=== PATIENT | female | born 1990 | race Caucasian/White ===

== ENCOUNTER → 2023-04-30 | Outpatient (CLI) | payer BC ==
--- NOTE | 2023-05-02 06:20 | MR ---
EXAMINATION TYPE: MR knee LT wo con DATE OF EXAM: 04/30/2023 COMPARISON: NONE HISTORY: Left knee pain and swelling with locking for approximately 4 months. History of ACL reconstr uction in 2009. Internal derangement. TECHNIQUE: Multiplanar, multisequence images of the knee is performed without IV contrast. FINDINGS: Suboptimal study with motion artifact degradation MEDIAL MENISCUS: Anterior and posterior horns are intact without tear. LATERAL MENISCUS: Anterior and posterior horns are intact without tear. CRUCIATE LIGAMENTS: The posterior cruciate ligament is intact and unremarkable. Surgically repaired a nterior cruciate ligament is felt intact. COLLATERAL LIGAMENTS: The medial collateral ligament and lateral collateral ligament complex are inta ct and unremarkable. EXTENSOR MECHANISM: Visualized quadriceps and patellar tendons are intact. EFFUSION: No significant suprapatellar joint effusion. POPLITEAL CYST: Small to moderate size popliteal/king cyst sagittal image 31 measuring 5.4 cm long a xis. TRICOMPARTMENT SPACES: Moderate tricompartment joint space loss and spurring. CARTILAGE: Significant chondromalacia patella with full-thickness cartilaginous loss along the programming intern ior patellar pole noted. Focal cartilaginous fissuring medial tibiofemoral compartment image 19. BONE MARROW SIGNAL: Heterogeneous increased T2 signal posterior patella sagittal image 14 and axial i mage 38. OTHER: No additional significant abnormality is appreciated. IMPRESSION: 1. Surgically repaired ACL remains intact. No meniscal or ligamentous tear is seen. 2. Tricompartment degenerative changes are moderate to severe patellofemoral compartment as detailed above and quite prominent for patient's chronologic age. 3. Small to moderate-sized popliteal cyst.
== END | disposition home or self-care (01) ==
LOC: RADMRIMAIN 20:45
PROVIDERS: ATTEND Orthopaedic Surgery
DX: M17.12 Unilateral primary osteoarthritis, left knee (principal); M71.22 Synovial cyst of popliteal space [Baker], left knee

== ENCOUNTER → 2024-05-18 | Outpatient (CLI) | payer BC ==
[2024-05-18 14:54] VITALS: BP 147/87; PULSE 86; RESP 16; TEMP 98
--- NOTE | 2024-05-18 16:11 | P.SLEEP ---
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 The patient is morbidly obese. The patient has noted to have loud snoring and she has been also noted to quits breathing at night and this has been observed by her bed partner, her boyfriend. The patient has awakened herself up on few occasions choking and gasping for air. She wakes up later in the middle of the night to urinate and she has history of nocturia. She has gained around 20 pounds over the past 1 year. She does try to take occasional naps in the afternoon at around 3 PM. She goes to bed at 10 PM she wakes up 5:30 AM in the morning as the patient has to be in school early. She wakes up tired in the morning and she has pounds with memory and concentration and she has chronic issues with anxiety and depression. She uses a marijuana supplement at nighttime for anxiety and relaxation. She drinks 2 cups of coffee in the morning. She does not fall asleep while driving. No motor vehicle accident because of feeling drowsy or sleepy. No sleep paralysis. No hallucinations. Cataplexy. No substance abuse. No smoking. No alcohol consumption. She has hypertension and diabetes mellitus is comorbid conditions. The patient is a side sleeper. She occasionally wakes up in the morning with a dry mouth. No sleepwalking. No sleep talking. No palpitation. No nighttime chest pain shortness of breath or heartburn. Review of Systems Constitutional: Reports daytime sleepiness, Reports fatigue, Reports weight gain Eyes: denies as per HPI, denies blurred vision, denies bulging eye, denies decreased vision, denies diplopia, denies discharge, denies dry eye, denies irritation, denies itching, denies pain, denies photophobia, denies loss of peripheral vision, denies loss of vision, denies tunnel vision/blind spots Ears: deny: decreased hearing, ear discharge, earache, tinnitus Ears, nose, mouth and throat: Reports as per HPI Breasts: absent: as per HPI, change in shape, gynecomastia, masses, nipple discharge, pain, skin changes, swelling Cardiovascular: Reports as per HPI Respiratory: Reports snoring Gastrointestinal: Reports as per HPI Genitourinary: Reports as per HPI Menstruation: Reports as per HPI Musculoskeletal: Reports as per HPI Musculoskeletal: absent: ankle pain, ankle stiffness, ankle swelling, as per HPI, elbow pain, elbow stiffness, elbow swelling, foot pain, foot stiffness, foot swelling, hand pain, hand stiffness, hand swelling, hip pain, hip stiffness, hip swelling, knee pain, knee stiffness, knee swelling, shoulder pain, shoulder stiffness, shoulder swelling, wrist pain, wrist stiffness, wrist swelling Integumentary: Reports as per HPI Neurological: Reports as per HPI Psychiatric: Reports as per HPI, Reports sleep disturbances Endocrine: Reports as per HPI, Reports fatigue Hematologic/Lymphatic: Reports as per HPI Allergic/Immunologic: Reports as per HPI Past Medical History Additional Past Medical History / Comment(s): Pre-Diabetic, over active bladder History of Any Multi-Drug Resistant Organisms: None Reported Past Surgical History: Appendectomy, Orthopedic Surgery Past Anesthesia/Blood Transfusion Reactions: No Reported Reaction Past Psychological History: Anxiety, Depression Smoking Status: Never smoker Past Alcohol Use History: Occasional Past Drug Use History: Marijuana Additional Drug Use History / Comment(s): daily - Past Family History Mother Family Medical History: Hypertension Additional Family Medical History / Comment(s): mental illness Father Additional Family Medical History / Comment(s): history of pre diabetes, headaches Physical Exam Vitals: Vital Signs Temp Pulse Resp BP Pulse Ox 05/18/24 14:53 98 F 86 16 147/87 98 Intake and Output 05/18/24 05/18/24 05/18/24 06:59 14:59 22:59 Other: Weight 173.272 kg The patient appeared well nourished and normally developed. Vital signs as documented. Head exam is unremarkable. No scleral icterus or corneal arcus noted. Neck is without jugular venous distension, thyromegaly, or carotid bruits. Carotid upstrokes are brisk bilaterally. Mallampati class IV with significant crowding of posterior pharynx Lungs are clear to auscultation and percussion. Cardiac exam reveals the PMI to be normally sized and situated. Rhythm is regular. First and second heart sounds normal. No murmurs, rubs or gallops. Abdominal exam reveals normal bowel sounds, no masses, no organomegaly and no aortic enlargement. Extremities are nonedematous and both femoral and pedal pulses are normal. Examination of the skin revealed no evidence of significant rashes, suspicious appearing nevi or other concerning lesions. Neurologically, the patient is awake and alert and the patient does not have any focal neurological deficit. Cranial nerves are essentially intact. Assessment and Plan Plan: Chronic hypersomnia with an [place] score of 10. In addition to that, the robyn ent has loss snoring, sleep fragmentation and features consistent with obstructive sleep apnea. Overall clinical suspicion for obstructive sleep apnea is quite high in this patient. The patient will need further investigation Loud snoring Obesity with a BMI of 56.4 Diabetes mellitus type 2 Hypertension Osteoarthritis Chronic anxiety/depression Plan As mentioned, the clinical suspicion for obstructive sleep apnea is high. Will proceed with a home sleep study to evaluate the presence and severity of sleep apnea and based on the results we will make further recommendation of treatment options. Meanwhile, encouraged losing weight. Maintain regular sleep schedule. Maintain good sleep hygiene measures. Avoid driving long distance especially when feeling drowsy or sleepy. Will continue to follow. Sleep Note - Sleep Data ESS Total: 10 - Sleep Note Sleep Note: Temperature: 98 F Pulse Rate: 86 Respiratory Rate: 16 Blood Pressure: 147/87 SpO2: 98 Height: 5 ft 9 in Weight: 173.272 kg BMI: Neck Circumference: 18
== END ==
LOC: 3 N SLEEP 14:06
PROVIDERS: ATTEND Internal Medicine Critical Care Medicine
CPT/HCPCS: 99211

== ENCOUNTER → 2024-05-27 | Outpatient (CLI) | payer BC ==
--- NOTE | 2024-06-04 08:12 | P.PCN ---
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 The patient is morbidly obese. The patient has noted to have loud snoring and she has been also noted to quits breathing at night and this has been observed by her bed partner, her boyfriend. The patient has awakened herself up on few occasions choking and gasping for air. She wakes up later in the middle of the night to urinate and she has history of nocturia. She has gained around 20 pounds over the past 1 year. She does try to take occasional naps in the afternoon at around 3 PM. She goes to bed at 10 PM she wakes up 5:30 AM in the morning as the patient has to be in school early. She wakes up tired in the morning and she has pounds with memory and concentration and she has chronic issues with anxiety and depression. She uses a marijuana supplement at nighttime for anxiety and relaxation. She drinks 2 cups of coffee in the morning. She does not fall asleep while driving. No motor vehicle accident because of feeling drowsy or sleepy. No sleep paralysis. No hallucinations. Cataplexy. No substance abuse. No smoking. No alcohol consumption. She has hypertension and diabetes mellitus is comorbid conditions. The patient is a side sleeper. She occasionally wakes up in the morning with a dry mouth. No sleepwalking. No sleep talking. No palpitation. No nighttime chest pain shortness of breath or heartburn. Pertinent physical findings The patient has a body mass index of 56.4 Technical description The O-RID system was used to complete his home sleep study. This is a type III home sleep study evaluation. The total recording duration was 8 hours and 35 minutes. The study started at 11:29 PM and ended at 8:04 AM. This was an adequate study as the patient had a total of 8 hours and 22 minutes of flow monitoring and 8 hours and 17 minutes of oxygen saturation monitoring Results Respiratory analysis showed a total of 177 obstructive apneas and 188 obstructive hypopneas. The resulting AHI was 43.6 consistent with severe symptomatic obstructive sleep apnea. Oxygenation analysis The patient had a baseline pulse ox of 95% room air oxygen. Average pulse ox during sleep was 91% and this patient spent approximately 1 hours and 40 minutes of sleep time below pulse ox of 89%. The minimum pulse ox was 65% Cardiac summary Average heart rate was 59 with a minimum heart rate of 47 and a maximum heart rate of 176 Assessment Severe symptomatic STEPHANIE with an AHI of 43.6 Severe nocturnal oxygen desaturation Morbid obesity with a BMI of 56.4 Chronic hypersomnia with an [place] score of 10. In addition to that, the patient has loss snoring, sleep fragmentation and features consistent with obstructive sleep apnea. Loud snoring Obesity with a BMI of 56.4 Diabetes mellitus type 2 Hypertension Osteoarthritis Chronic anxiety/depression Plan Plan Severe obstructive sleep apnea. Will discuss findings with the patient. He has an [place] score of 10. Will encourage weight loss. Based on the symptomatic nature of this patient's sleep apnea, I would recommend CPAP therapy and the patient will be asked to come into the sleep center to undergo a CPAP titration. This will be discussed with the patient. At the same time, the patient will be advised to maintain regular sleep schedule and implement good sleep hygiene m easures. Will continue to follow.
== END ==
LOC: 3 N SLEEP 16:49
PROVIDERS: ATTEND Internal Medicine Critical Care Medicine
DX: G47.33 Obstructive sleep apnea (adult) (pediatric) (principal); G47.36 Sleep related hypoventilation in conditions classified elsewhere; G47.10 Hypersomnia, unspecified; E11.9 Type 2 diabetes mellitus without complications; E66.01 Morbid (severe) obesity due to excess calories; F32.A Depression, unspecified; F41.9 Anxiety disorder, unspecified; I10 Essential (primary) hypertension; M19.90 Unspecified osteoarthritis, unspecified site; G47.8 Other sleep disorders; Z68.43 Body mass index [BMI] 50.0-59.9, adult

== ENCOUNTER 2024-05-31 19:44 | Outpatient (CLI) | payer BC ==
--- NOTE | 2024-06-08 23:43 | P.PCN ---
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 The patient is morbidly obese. The patient has noted to have loud snoring and she has been also noted to quits breathing at night and this has been observed by her bed partner, her boyfriend. The patient has awakened herself up on few occasions choking and gasping for air. She wakes up later in the middle of the night to urinate and she has history of nocturia. She has gained around 20 pounds over the past 1 year. She does try to take occasional naps in the afternoon at around 3 PM. She goes to bed at 10 PM she wakes up 5:30 AM in the morning as the patient has to be in school early. She wakes up tired in the morning and she has pounds with memory and concentration and she has chronic issues with anxiety and depression. She uses a marijuana supplement at nighttime for anxiety and relaxation. She drinks 2 cups of coffee in the morning. She does not fall asleep while driving. No motor vehicle accident because of feeling drowsy or sleepy. No sleep paralysis. No hallucinations. Cataplexy. No substance abuse. No smoking. No alcohol consumption. She has hypertension and diabetes mellitus is comorbid conditions. The patient is a side sleeper. She occasionally wakes up in the morning with a dry mouth. No sleepwalking. No sleep talking. No palpitation. No nighttime chest pain shortness of breath or heartburn. The patient underwent a home sleep study that was done on 05/26/2024 and the patient was found to have severe STEPHANIE with an AHI of 43.6. Based on that, the patient is presenting to the sleep center to undergo a CPAP titration. Pertinent physical findings The patient has a weight of 382 pounds with a body mass index of 56.4 Technical description The patient was studied using a standard complex polysomnography protocol that included recording of the Lead II EKG, Central, occipital and frontal EEG, right and left outer canthus EOG, submental EMG, right and left anterior tibialis EMG, respiratory airflow by thermocouple and or pressure/flow transducer, respiratory efforts by abdominal and thoracic PVDF belts, oxygen saturation by cable oximetry. Position by observation synchronized the PSG. Equipment used: [employer]. Stepwise CPAP titration was done to eliminate all obstructive respiratory events Sleep architecture The total recording duration was 424.5 minutes. The total sleep time was 365.0 minutes. The sleep efficiency was 86%. The latency to sleep onset was 26 minutes. The latency to REM sleep was 140.0 minutes. The sleep architecture was characterized by 6.8% stage I, 53.8% stage II, 17.7% stage III, 21.8% REM sleep. The total arousal index was 16.8. The wake after sleep onset time was 31.5 minutes. CPAP titration summary The patient was started on CPAP therapy, initially at a pressure of 5 cm of water and the pressure was gradually increased by increments of 1 cm to reach a maximum CPAP pressure of 12 cm of water. This was a very successful titration. The patient encountered a prolonged REM and the patient was also studied essentially in supine and supine body position, predominantly nonsupine. I did target pressure of 12 cm of water, there was complete elevation of the obstructive respiratory events and the patient was able to maintain an oxygen saturation above 90% without any desaturations even during REM sleep. Sleep continuity There was a total of 102 arousals with an index of 16.8. Respiratory arousal index was 3.8 Periodic movement events A total of 59 periodic limb movement activity with an index of 9.7. There was another at 8 periodic limb movement activity with arousals with an index of 1.3 Heart rate analysis The average heart rate was 87 with a minimum heart rate of 82 and a maximum heart rate of 93 Assessment Severe symptomatic STEPHANIE with an AHI of 43.6, and the patient underwent a successful CPAP titration Severe nocturnal oxygen desaturation, improved with CPAP therapy Morbid obesity with a BMI of 56.4 Chronic hypersomnia with an [place] score of 10. Loud snoring Obesity with a BMI of 56.4 Diabetes mellitus type 2 Hypertension Osteoarthritis Chronic anxiety/depression Plan Plan Proceed with CPAP therapy at a pressure of 12 cm of water with a C-Flex of 3. The patient is going to be provided in the AirFit N 30I small size nasal mask. Encourage weight loss. Optimize sleep hygiene measures. Maintain regular sleep schedule. See me back in the office in 30 to 90 days to assess clinical response and compliancy. Will continue to follow.
== END 2024-06-01 05:24 | disposition home or self-care (01) ==
LOC: 3 N SLEEP 19:44
PROVIDERS: ATTEND Internal Medicine Critical Care Medicine
DX: G47.33 Obstructive sleep apnea (adult) (pediatric) (principal); G47.36 Sleep related hypoventilation in conditions classified elsewhere; G47.10 Hypersomnia, unspecified; I10 Essential (primary) hypertension; E11.9 Type 2 diabetes mellitus without complications; M19.90 Unspecified osteoarthritis, unspecified site; E66.01 Morbid (severe) obesity due to excess calories; F41.9 Anxiety disorder, unspecified; F32.A Depression, unspecified; Z99.89 Dependence on other enabling machines and devices; Z68.43 Body mass index [BMI] 50.0-59.9, adult
CPT/HCPCS: 95811